=== PATIENT | female | born 1990 | race African-American/Black ===

== ENCOUNTER 2021-10-16 17:21 | Emergency (ER) | payer BC ==
[~2021-10-16] VITALS: Ht 170.2 cm; Wt 104.3 kg
--- NOTE | 2021-10-16 17:41 | NUR ---
DR OLSON AT BEDSIDE FOR EVALUATION.
[2021-10-16 17:46] LABS: *BILIRUBIN,URIN NEGATIVE (NEGATIVE); *BLOOD, URINE 3+ (NEGATIVE); *CLARITY,URINE CLOUDY (CLEAR); *COLOR,URINE YELLOW (YELLOW); *KETONES,URINE NEGATIVE (NEGATIVE); *UROBILINOGEN,URINE 0.2 E.U./dl (NORMAL); LEUKOCYTE ESTERASE ,URINE 1+ (NEGATIVE); NITRITE, URINE POSITIVE (NEGATIVE); UGLUCOSE NEGATIVE (NEGATIVE)
[2021-10-16 17:59] LABS: HEMATOCRIT 38.7 % (31.2-41.9); MEAN CORPUSCULAR HEMOGLOBIN 32.1 uug (24.7-32.8); MEAN CORPUSCULAR VOLUME 90.1 fL (75.5-95.3); PLATELET COUNT (AUTO) 262 K/uL (179-408)
[2021-10-16 18:06] LABS: CREATININE 0.9 mg/dL (0.6-1.3); POTASSIUM 3.9 mmol/L (3.5-5.1)
[2021-10-16 18:22] LABS: BACTERIA,URINE MANY /HPF (NONE SEEN); SQUAMOUS EPITHELIAL CELL,UR MODERATE /HPF (NONE SEEN)
--- NOTE | 2021-10-16 18:48 | NUR ---
Female co teacher accompanied female patient for (U/S tech).
--- NOTE | 2021-10-16 19:05 | NUR ---
Very thorough report received from JUSTIN Chang RN using SBAR method. All questions answered. Nothing pending on pt. Pt awaiting DC home. Standing by for DC instructions frm ED. Pt aaox4 with good color and appearance, VSS, PE WNL, NAD. otherwise completely healthy with no med issues. no s/sx of distress present.
--- NOTE | 2021-10-16 20:02 | NUR ---
Pt given DC instructions and acknowledged understanding of aftercare explained by myself and the EDMD. VSS, in no apparent distress. No complaints of pain, sob, n/v, or distress present. Pt ambulated out of ED with steady gait.
[2021-10-16 20:04] VITALS: BP 113/61
== END 2021-10-16 19:50 | disposition home or self-care (01) ==
LOC: ER 17:25
DX: N93.9 Abnormal uterine and vaginal bleeding, unspecified (principal); O36.4XX0 Maternal care for intrauterine death, not applicable or unspecified; Z3A.01 Less than 8 weeks gestation of pregnancy; Z67.40 Type O blood, Rh positive
CPT/HCPCS: 36415; 70030-TC; 85025; 85730; 86850; 86900; 86901; 87077; 87086; A4663